=== PATIENT | male | born 1960 | race Caucasian/White ===

== ENCOUNTER 2022-12-08 13:55 | Outpatient (REF) | payer OTHER, SELFPAY ==
--- NOTE | ~2022-12-08 | MR_ITS ---
EXAMINATION: MR BRAIN WITHOUT AND WITH CONTRAST CLINICAL INFORMATION: Seizure disorder. COMPARISON: None available. TECHNIQUE: Multiplanar, multisequence imaging of the brain was performed before and after the intravenous administration of 10 mL of Gadavist. FINDINGS: No diffusion abnormalities are identified to suggest an acute infarct. The ventricles are normal in size. No mass effect or midline shift is seen. No brain parenchymal signal abnormality is noted. No extra-axial fluid collections are seen. The brainstem and cerebellum are normal. There is no abnormal parenchymal or leptomeningeal enhancement. The hippocampi are normal in appearance without volume loss or signal abnormality. The gradient refocused acquisition demonstrates no pathologic magnetic susceptibility artifact to indicate underlying acute or chronic blood products. The craniovertebral junction, marrow signal, and midline structures are normal. The major intracranial flow voids at the level of the burns pa[place] of [place] are preserved. The dural venous sinus flow voids are maintained. The mastoid air cells and paranasal sinuses are well aerated. MR/MR head/brain wo/w con IMPRESSION: Normal MRI of the brain. No acute process. No epileptogenic focus identified or hippocampal pathology.
[2022-12-08] MEDS: gadobutroL 10 ML VIAL IVPUSH (15:25)
== END 2022-12-08 13:56 | disposition home or self-care (01) ==
LOC: HO.MRI 13:55
PROVIDERS: Visit Provider Psychiatry & Neurology Neurology
DX: G40.909 Epilepsy, unspecified, not intractable, without status epilepticus (principal)
CPT/HCPCS: 70553; A9585

== ENCOUNTER 2023-06-28 12:44 | Outpatient (REF) | payer OTHER, SELFPAY ==
--- NOTE | ~2023-06-28 | MR_ITS ---
EXAMINATION: MR ABDOMEN WITHOUT AND WITH CONTRAST CLINICAL INFORMATION: History left renal cell carcinoma COMPARISON: No prior imaging available for comparison. TECHNIQUE: MRI of the abdomen before and after the IV administration of 10 mL of Gadavist was obtained using routine sequences. FINDINGS: LUNG BASES: The visualized lung bases are unremarkable. KIDNEYS AND URETERS: Bosniak 1 bilateral renal cysts and a 3.7 cm left bosniak 2 renal cyst with a few (less than 3) and internal septations, no follow-up imaging recommended. Postsurgical changes of left lower pole partial nephrectomy without findings to suggest residual or recurrent disease. GALLBLADDER: Unremarkable. LIVER AND BILIARY TREE: The liver is normal in signal and morphology. Few scattered benign appearing hepatic cysts. No intra or extrahepatic biliary duct dilatation. PANCREAS: Unremarkable SPLEEN: Unremarkable ADRENAL GLANDS: Unremarkable GASTROINTESTINAL TRACT: Unremarkable. LYMPH NODES: No lymphadenopathy. VASCULAR: Unremarkable ABDOMINAL WALL: Unremarkable. OSSEOUS STRUCTURES: Unremarkable. MR/MR abdomen wo/w con IMPRESSION: Postsurgical changes of left lower pole partial nephrectomy without findings to suggest residual or recurrent disease.
[2023-06-28] MEDS: gadobutroL 10 ML VIAL IVPUSH (14:05)
== END 2023-06-28 12:45 | disposition home or self-care (01) ==
LOC: HO.MRI 12:44
PROVIDERS: PCP Internal Medicine; Visit Provider Physician Assistant
DX: N28.1 Cyst of kidney, acquired (principal); Z90.5 Acquired absence of kidney
CPT/HCPCS: 74183; A9585

== ENCOUNTER 2024-01-14 16:44 | Outpatient (REF) | payer OTHER, SELFPAY ==
[2024-01-14] MEDS: gadobutroL 10 ML VIAL IVPUSH (17:31)
== END 2024-01-14 16:45 | disposition home or self-care (01) ==
LOC: HO.MRI 16:44
PROVIDERS: Visit Provider Nurse Practitioner
DX: N28.89 Other specified disorders of kidney and ureter (principal)
CPT/HCPCS: 74183; A9585

== ENCOUNTER → 2024-01-14 16:52 | Outpatient (BNV) | payer OTHER, SELFPAY | PROVIDERS: Visit Provider Radiology Diagnostic Radiology | DX: N28.89 Other specified disorders of kidney and ureter (principal); R91.8 Other nonspecific abnormal finding of lung field | CPT/HCPCS: 74183 ==

== ENCOUNTER 2024-03-20 11:06 | Outpatient (REF) | payer OTHER, SELFPAY ==
--- NOTE | ~2024-03-20 | CT_ITS ---
CLINICAL HISTORY: LUNG NODULE CT chest with contrast Comparison: None Findings: The heart size is normal. The visualized thyroid and mediastinum are unremarkable. There is a 2 mm nodule in the medial aspect of the right upper lobe, series 3, image 42. In the left lower lobe there is a 1 mm subpleural nodule, series 3, image 96. Adjacent there is also a subpleural 6 mm nodule, image 97. Lungs are otherwise clear. No effusion or pneumothorax. There is a 3.5 cm simple cyst in the left kidney. There is a nonobstructing 2 mm calcification in the left kidney. There is fatty infiltration of the liver. No lytic or blastic bone lesions. No acute fracture deformities. Mild chronic anterior wedging of T12. IMPRESSION: 1. There are a few pulmonary nodules in both lungs, largest is 6 mm in the left lower lobe. Per Fleischner criteria: 6-8 mm nodules need 3-[address] follow-up followed by an optional 18-[address] follow-up regardless of patient risk. 2. Hepatic steatosis. 3. Nonobstructing 2 mm calcification in the left kidney. This document has been electronically signed by: Jose Rafael Rios MD on 03/21/2024 19:29:45
[2024-03-20] MEDS: iohexoL 350 MG/ML 75 ML INFUS..BTL 65 ML IV (12:23)
--- OUTSIDE RECORDS SUMMARY | 2024-03-20 12:39 | XMS_ITS | Encounter Summary ---
Author Organization [facility] Address [address] [place] [address] Care Team Providers Care Pill Coater Name Role Phone Ly Hernández MD Primary Care Provider Reason for Visit * Reason Comments Follow-up Right hip pain Encounter Details Date Type Department Care Team (Late st Contact Info) Description 03/14/2024 8:00 AM EST Office Visit Orthopedic Surgery - [place] [address] [facility] [address] [place] [phone] Chelo Emerson MD [address] [place] [address] Left elbow pain (Primary Dx) Social History Tobacco Use Types Packs/Day Years Used Date Smoking Tobacco: Never Smokeless Tobacco: Never Alcohol Use Standard Drinks/Week Comments Yes 1 (1 standard drink = 0.6 oz pur e alcohol) Sex and Gender Information Value Date Recorded Sex Assigned at Not on file Gender Identity Not on file Sexual Orientation Not on file Job Start Date Occupation Industry Not on file Not on file Not on file documented as of this encounter Last Filed Vital Signs Vital Sign Reading Time Taken Comments Blood Pressure - - Pulse - - Temperature - - Respiratory Rate - - Oxygen Saturation - - Inhaled Oxygen Concentration - - Weight 93.9 kg (207 lb) 03/14/2024 8:05 AM EST Height 177.8 cm (5' 10 ) 03/14/2024 8:05 AM EST Body Mass Index 29.7 03/14/2024 8:05 AM EST documented in this encounter Progress Notes * Chelo Emerson MD - 03/14/2024 8:00 AM EST Michael Riggins CC: Chief Complaint Patient presents with Follow-up Right hip pain HPI: Michael is here to follow-up with his right lateral hip pain and review MRI done recently. I reviewed the MRI images with him which did show an insertional tendinopathy of the right gluteus minimusand medius tendons. There is a small partial-thickness insertional tear of the gluteus medius. There is minimal degenerative changes of the hip joints. There was some slight signal in the superior labrum but unable to fully evaluate for a labral tear on this nonarthrogram study. He reports his hip feels about the same. ROS: Constitutional: no fever Musculoskeletal: see HPI Skin: no rash Neurologic: negative for headache, dizziness The remainder of the systems is noncontributory PMH: Patient Active Problem List Diagnosis Date Noted Palpitations 01/25/2021 Left inguinal hernia 09/23/2020 History of partial nephrectomy 05/25/2020 Renal cyst, left 05/25/2020 Abdominal wall swelling 05/03/2019 Generalized abdominal pain 05/03/2019 Anxiety 05/08/2018 Depression 05/08/2018 Essential hypertension 05/08/2018 Valdovinos's esophagus 03/01/2015 Panic disorder 11/12/2013 Vertigo 09/19/2013 Nasal vestibulitis 09/04/2013 Asymmetrical sensorineural hearing loss 07/30/2013 Ear pain 07/23/2013 Dizziness 07/23/2013 Sleep apnea 2012 Obesity 06/07/2010 Atypical chest pain 06/02/2008 Chronic headache 06/02/2008 IBS (irritable bowel syndrome) 06/02/2008 Diarrhea 05/10/2006 Diverticulitis of colon without hemorrhage 05/08/2006 Allergic rhinitis 12/17/2004 Lumbago 12/17/2004 Hyperlipidemia 07/01/2004 Generalized anxiety disorder 11/27/2000 GERD (gastroesophageal reflux disease) 11/12/1998 PSH: Past Surgical History: Procedure Laterality Date ADENOIDECTOMY PROCEDURE: HISTORICAL ADENOIDECTOMY APPENDECTOMY PROCEDURE: HISTORICAL APPENDECTOMY COLONOSCOPY 02/27/1998 PROCEDURE: HISTORICAL COLONOSCOPY COLONOSCOPY 02/27/2013 PROCEDURE: HISTORICAL COLONOSCOPY; COMMENT: normal COLONOSCOPY W/ BIOPSIES 05/08/2006 PROCEDURE: WY COLONOSCOPY W/BIOPSY SINGLE/MULTIPLE; COMMENT: path: nonspecific inflammation. ESOPHAGOGASTRODUODENOSCOPY 05/08/2006 PROCEDURE: WY EGD TRANSORAL BIOPSY SINGLE/MULTIPLE; COMMENT: duodenal bx wnl. FLEXIBLE SIGMOIDOSCOPY 02/04/2014 PROCEDURE: WY SIGMOIDOSCOPY FLX DX W/COLLJ SPEC BR/WA IF PFRMD; COMMENT: negative to 30 cm (tics). FLEXIBLE SIGMOIDOSCOPY 02/25/2014 PROCEDURE: WY SIGMOIDOSCOPY FLX DX W/COLLJ SPEC BR/WA IF PFRMD; COMMENT: neg/inc CN to 40 cm. NEPHRECTOMY 11/27/2012 PROCEDURE: HISTORICAL NEPHRECTOMY; COMMENT: renal cell ca, partial left nephrectomy OTHER SURGICAL HISTORY 2016 PROCEDURE: HISTORY OTHER; COMMENT: Hernia Repair; MESH repair incisional hernia OTHER SURGICAL HISTORY 2015 PROCEDURE: HISTORY OTHER; COMMENT: Alice fundoplication OTHER SURGICAL HISTORY 08/08/2018 PROCEDURE: WY LAPS COLECTOMY PRTL W/END CLST & CLSR DSTL SGM; COMMENT: Surgical Laparoscopy with partoal (sigmod) colectomy and anastomosis OTHER SURGICAL HISTORY PROCEDURE: WY NEPHROLITHOTOMY COMP CGEN KDN ABNORMALITY TONSILLECTOMY PROCEDURE: HISTORICAL TONSILLECTOMY Medications: Current Outpatient Medications: multivitamin tablet, Take 1 tablet by mouth 1 (one) time each day., Disp: , Rfl: omeprazole (PriLOSEC) [address] capsule, Take 1 capsule (20 mg total) by mouth 2 times daily., Disp:, Rfl: triamcinolone acetonide (KENALOG-40) 40 mg/mL injection, Inject 1 mL (40 mg total) into the joint. (Patient not taking: Reported on 01/23/2024), Disp: , Rfl: Allergies: Allergies Allergen Reactions Fentanyl Nausea And Vomiting and Nausea Only Nitroglycerin Nausea And Vomiting Other Reaction(s): Blood pressure, low LOW BLOOD PRESSURE Morphine Nausea And Vomiting ALL PAIN MEDICATIONS- NAUSEA/GI UPSET AND VOMITING SHx: Social History Tobacco Use Smoking status: Never Smokeless tobacco: Never Substance Use Topics Alcohol use: Yes Alcohol/week: 1.0 - 2.0 standard drink of alcohol FHx: Family History Problem Relation Name Age of Onset Other (Other: kidney disease Goodpasture's disease) Father Colon polyps Father dx age > 60 Multiple myeloma Father Cervical cancer Aunt paternal Colon cancer Uncle paternal, dx > 60 Prostate cancer Uncle Paternal Coronary artery disease Neg Hx Physical Exam: Visit Vitals Ht 1.778 m (70 ) Wt 93.9 kg (207 lb) BMI 29.70 kg/m?? Smoking Status Never BSA 2.12 m?? Gen: No acute distress. Pleasant Eyes: PERRL, EOMI ENT: Mucous membranes moist Resp:Normal respiratory effort Lymphatics: No noted lymphadenopathy MSK: Hip: Right Inspection: no ecchymosis, asymmetry, atrophy. Gait: non-antalgic. Standing: nl. Palpation: Inguinal crease: nl, ASIS: nl, AIIS: nl, Ischial tub/Hamstring attach: nl, Greater troch: TTP , Iliac crest: nl, gluteals/ERs:Nl, piriformis: Nl, IT band : TTP , ROM: IR/ER/Ext/Flex-full Strength: Hip flex @80 deg.: 4/5 , @100 deg: -5/5, Abduct: 4/5, Adduct: nl, Special tests: SHAYNE: nl, FADIR: nl, Trendelenberg: neg but pain with SL balange. DEE: nl, Squat: nl Neurovascular: Sensation to light touch: Intact and symmetric. DTR: Intact and symmetric. Peripheral pulses: Intact and symmetric. Cap. Refill: brisk. Radiographic/Imaging: MRI Rt hip FINDINGS: Mild cartilage thinning and irregularity along the weightbearing surface of the right hip, with small femoral head and acetabular rim osteophytes. No joint effusion. There is linear signal in the anterior superior labrum which could represent a small tear. Insertional tendinopathy of the gluteus minimus with mild fraying at the insertion. Less prominent insertional tendinopathy of the gluteus medius. Small partial-thickness insertional tear of the gluteus meniscus. No large tear. The other periarticular musculature appears normal. Mild degenerative changes of the left hip are also evident, with mild cartilage irregularity along the weightbearing surface and small acetabular rim osteophytes. There are partially visible degenerative changes of the lumbar spine. The prostate gland is mildly enlarged. No pelvic lymphadenopathy. The pelvic bowel loops are normal. IMPRESSION: 1. Insertional tendinopathy of the right gluteus minimus with mild fraying. Less pronounced insertional tendinopathy of the gluteus medius with a small partial- thickness insertional tear. 2. Mild degenerative changes of both hips. 3. Linear signal in the anterior superior right acetabular labrum. This could represent a labral tear. If clinically indicated this could be further evaluated with an MR arthrogram. All images are stored and permanently retrievable Assessment: 1) Right lateral hip pain secondary to gluteus minimus and medius tendinosis with partial-thicknesstearing of the insertion of the gluteus medius tendon. As he has failed multiple conservative therapies including modification of activities, rest, anti-inflammatories and occupational therapy and cortisone injections we discussed platelet rich plasma injection therapy. I did stress that this is not covered by insurance as the FDA considers that experimental. It does incur an [id number] cost of $500 do at the time of visit. I discussed the protocol prior to the procedure which included discontinuing all anti- inflammatory medication 1 week beforethe procedure and not to use them for 2 weeks after the procedure. I discussed use of bracing to limit mobility for 3 to 5 days following the procedure. I also stressed the importance of returning to occupational therapy to begin progressive reloading of this tendon to help facilitate healing. Plan: 1) He will look at his schedule and find a time where it makes sense for him to come in for PRP injection and have the next few days off from work. 2) stressed importance of resuming physical therapy a week after the PRP to help facilitate tendon healing All of the patient's questions were answered. The patient understand and feels comfortable with thecurrent care plan. Thanks for allowing me to be a part of the patient's care team! Please feel free to contact me for any reason. Sincerely, Chelo Emerson MD. ON 03/15/2024 at 1:46 PM EST documented in this encounter Plan of Treatment Upcoming Encounters Date Type Department Care Team (Late st Contact Info) Description 04/12/2024 11:30 AM EST Procedure visit Orthopedic Surgery [facility] [address] [facility] [address] [place] [id number] Chelo Emerson MD [address] [place] [address] 05/08/2024 9:00 AM EDT Office Visit [address] [address] Ly Hernández MD [address] [place] [address] documented as of this encounter Visit Diagnoses Diagnosis Left elbow pain- Primary Pain in joint, upper arm documented in this encounter Care Teams Pill Coater Relationship Specialty Start Date End Date Ly Hernández MD [address] [place] [id number] PCP - General 06/21/1997 documented as of this encounter
--- OUTSIDE RECORDS SUMMARY | 2024-03-20 12:39 | XMS_ITS | Encounter Summary ---
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, unspecified laterality (CMS/HCC) Ly Hernández MD [address] [place] [address] [facility] [address] [address] Referral ID Status Reason Start Date Expiration Date Visits Requested Visits Authorized [id number] Pending Review Specialty Services Required 03/01/2024 03/01/2025 1 1 Reason for Visit * Reason Onset Date Comments Referral 02/29/2024 Referral for [facility] Encounter Details Date Type Department Care Team (Late st Contact Info) Description 02/29/2024 Telephone Adult Medicine [address] [phone] Ly Hernández MD [address] [place] [address] Referral (Referral for ass Urology) Social History Tobacco Use Types Packs/Day Years [...] on file documented as of this encounter Progress Notes * Luna Ballard MA - 03/01/2024 11:12 AM EST New order pended for approval patient already had appointment on 02/12/24 with Urology. Thank you * Luna Ballard MA - 03/01/2024 10:03 AM EST Tried to call patient to inquire what he is looking for. I was unable to reach patient and vm was full * Yamilet Fischer - 02/29/2024 4:29 PM EST Please create an order for the referral Caller: n/a Office: [facility] U[facility] Insurance: [facility] ID: [id number] Provider: Matilda Hare DOS: 02/12/24 Visits: 6 Dx code: N28.1 IMPORTANT Pls copy and paste this into the order. Otherwise, it will not be processed as an ins referral documented in this encounter Plan of Treatment Upcoming Encounters Date Type Department Care Team (Late st Contact Info) Description 04/12/2024 11:30 AM EST Procedure visit Orthopedic Surgery - [place] [address] [facility] [address] [place] [address] Chelo Emerson MD [address] [place] [address] 05/08/2024 9:00 AM EDT Office [place] [facility] [address] [place] [address] Ly Hernández MD [address] [place], [place] Scheduled Referrals Name Type Priority Associated Diagnoses Order Schedule Ambulatory referral to Urology Outpatient Referral Routine 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
--- OUTSIDE RECORDS SUMMARY | 2024-03-20 12:39 | XMS_ITS | Clinical Summary ---
Author Organization [address] Address [address] [place] [phone] Phone Care Team Providers Care Managed Care Coordinator Name Role Phone Ly Hernández MD Primary Care Provider [phone] Allergies Active Allergy Reactions Criticality Noted Date Comments Fentanyl Nausea And Vomiting,Nausea Only High 12/13/2022 Morphine Nausea And Vomiting Medium 06/01/2007 ALL PAIN MEDICATIONS- NAUSEA/GI UPSET AND VOMITING Nitroglycerin Nausea And Vomiting High 06/01/2007 Other Reaction(s): Blood pressure, low LOW BLOOD PRESSURE Medications Medication Sig Dispensed Refills Start Date End Date Status triamcinolone acetonide (KENALOG-40) 40 mg/mL injection Inject 1 mL (40 mg total) into the joint. 08/18/2023 Active omeprazole (PriLOSEC) [address] capsule Take 1 capsule (20 mg total) by mouth 2 times daily. 08/15/2020 Active multivitamin tablet Take 1 tablet by mouth 1 (one) time each day. Active Active Problems Problem Noted Date Diagnosed Date Palpitations 01/25/2021 Overview (01/19/2024): Last Assessment & Plan: The patient has a history of Infrequent episodes of palpitations that have been deemed to be secondary to symptomatic premature beats given the results of his Holter monitor from December 2020. Echocardiogram done in December 2020 did not show any evidence of significant structural heart disease. The patient's symptoms are infrequent and very brief. Therefore, conservative management has been implemented with lifestyle modifications. No need for AV maggi blocking agents at this point, particularly given the patient's resting bradycardia. We will continue close monitoring. The patient will contact our office if he notices any worsening of his episodes of palpitations or any evidence of prolonged episodes of palpitations. Left inguinal hernia 09/23/2020 History of partial nephrectomy 05/25/2020 Renal cyst, left 05/25/2020 Abdominal wall swelling 05/03/2019 Generalized abdominal pain 05/03/2019 Anxiety 05/08/2018 Depression 05/08/2018 Essential hypertension 05/08/2018 Valdovinos's esophagus 03/01/2015 Overview (01/19/2024): EGD and bx 02/17/2015 at [facility]; SSBE, no dysplasia. Consider EGD at [facility] with MAC 01/2017. Panic disorder 11/12/2013 Vertigo 09/19/2013 Nasal vestibulitis 09/04/2013 Asymmetrical sensorineural hearing loss 07/31/19 14 Ear pain 07/23/2013 Dizziness 07/23/2013 Sleep apnea 2012 Overview (01/19/2024): Overall mild Obesity 06/07/2010 Atypical chest pain 06/02/2008 Overview (01/19/2024): Onset 2007. Cardiovascular evaluation negative, very likely related with the patient's anxiety Chronic headache 06/02/2008 Overview (01/19/2024): Onset approx 2008. IBS (irritable bowel syndrome) 06/02/2008 Overview (01/19/2024): Symptomatic onset approximately 2004. Diarrhea predominant. Minimal microscopic colonic mucosal abnormalities on biopsies 2006. No response to Asacol. Duodenal biopsies normal 2006. Diarrhea 05/10/2006 Overview (01/19/2024): Chronic diarrhea/ IBS most likely. Colonic biopsies obtained 05.08.06, negative except for focal, nonspecific inflammatory changes. Diverticulitis of colon without hemorrhage 05/08 Overview (01/19/2024): Incidental finding at colonoscopy 05/08/2006. Allergic rhinitis 12/17/2004 Lumbago 12/17/2004 Overview (01/19/2024): herniated disc 1998 per MRI Hyperlipidemia 07/01/2004 Overview (01/19/2024): elevated triglycerides Generalized anxiety disorder 11/27/2000 GERD (gastroesophageal reflux disease) 9 Overview (01/19/2024): Endo negative 02/01/1999. EGD neg 05/08/2006; duodenal bx: normal. S/p lap fundoplication at [facility] 04/2015 Encounters Date Type Department Care Team Description 03/14/2024 8:00 AM EST Office Visit Orthopedic Surgery [facility] [address] [phone] Chelo Emerson MD Left elbow pain (Primary Dx) 02/29/2024 Telephone Adult Medicine [address] [phone] Ly Hernández MD Referral (Referral for [facility] Urology) 02/22/2024 8:27 AM EST - 02/22/2024 11:59 PM EST Hospital Encounter [facility] MRI [address] [place] [id number] Greater trochanteric pain syndrome of right lower extremity Discharge Disposition: Home or Self Care 02/13/2024 Telephone Adult Medicine [address] [phone] Ly Hernández MD Referral 02/09/2024 8:00 AM EST Consult Orthopedic Surgery [facility] [address] [phone] Chelo Emerson MD Greater trochanteric pain syndrome of right lower extremity 01/26/2024 Telephone Adult Medicine [address] [phone] Ly Hernández MD Referral 01/23/2024 8:45 AM EST Office Visit Adult Medicine [address] [phone] Ly Hernández MD Right hip pain (Primary Dx); Class 1 obesity due to excess calories with serious comorbidity in adult, unspecified BMI; Valdovinos's esophagus with dysplasia from Last 3 Months Immunizations Name Administration Dates Next Due Td Tetanus diptheria (Tdvax) 7yo and older 06/30 Tdap Tetanus diptheria acell ular pertussis (Boostrix; Adacel) 7yo and older 03/16/2010 Surgical History Surgery Date Site/Laterality Comments APPENDECTOMY PROCEDURE: HISTORICAL APPENDECTOMY TONSILLECTOMY PROCEDURE: HISTORICAL TONSILLECTOMY ADENOIDECTOMY PROCEDURE: HISTORICAL ADENOIDECTOMY COLONOSCOPY 02/27/1998 PROCEDURE: HISTORICAL COLONOSCOPY COLONOSCOPY W/ BIOPSIES 05/08/2006 PROCEDURE: OK COLONOSCOPY W/BIOPSY SINGLE/MULTIPLE; COMMENT: path: nonspecific inflammation. ESOPHAGOGASTRODUODENOSCOPY 05/08/2006 PROCEDURE: OK EGD TRANSORAL BIOPSY SINGLE/MULTIPLE; COMMENT: duodenal bx wnl. NEPHRECTOMY 11/27/2012 PROCEDURE: HISTORICAL NEPHRECTOMY; COMMENT: renal cell ca, partial left nephrectomy COLONOSCOPY 02/27/2013 PROCEDURE: HISTORICAL COLONOSCOPY; COMMENT: normal FLEXIBLE SIGMOIDOSCOPY 02/04/2014 PROCEDURE: OK SIGMOIDOSCOPY FLX DX W/COLLJ SPEC BR/WA IF PFRMD; COMMENT: negative to 30 cm (tics). FLEXIBLE SIGMOIDOSCOPY 02/25/2014 PROCEDURE: OK SIGMOIDOSCOPY FLX DX W/COLLJ SPEC BR/WA IF PFRMD; COMMENT: neg/inc CN to 40 cm. OTHER SURGICAL HISTORY 2017 PROCEDURE: HISTORY OTHER; COMMENT: Hernia Repair; MESH repair incisional hernia OTHER SURGICAL HISTORY 2015 PROCEDURE: HISTORY OTHER; COMMENT: Alice fundoplication OTHER SURGICAL HISTORY 08/08/2018 PROCEDURE: OK LAPS COLECTOMY PRTL W/END CLST & CLSR DSTL SGM; COMMENT: Surgical Laparoscopy with partoal (sigmod) colectomy and anastomosis OTHER SURGICAL HISTORY PROCEDURE: OK NEPHROLITHOTOMY COMP CGEN KDN ABNORMALITY Medical History Medical History Date Comments Esophageal reflux 11/12/1998 DX:Esophageal reflux; COMMENT: Endo negative 02/01/1999 Depressive disorder, not els ewhere classified 07/26/2000 DX:Depressive disorder, not elsewhere classified Generalized anxiety disorder 11/27/2000 DX: Generalized anxiety disorder Essential hypertension, benign 03/01/2002 D X:Essential hypertension, benign Obesity, unspecified 11/20/2002 DX:Obesity, unspecified Other and unspecified hyperlipidemia 07/01/2004 DX:Other and unspecified hyperlipidemia Pure hypercholesterolemia 09/03/2004 DX:Pur e hypercholesterolemia Allergic rhinitis, cause unspecified DX:Allergic rhinitis, cause unspecified Lumbago DX:Lumbago; COMM ENT: herniated disc 1998 per MRI Family history of malignant neoplasm of gastrointestinal tract 02/01/1999 DX:Family history of maligna nt neoplasm of gastrointestinal tract; COMMENT: colnoscopy 02/01/1999 negative Uric acid metabolism drugs c ausing adverse effect in therapeutic use DX:Uric acid metabol ism drugs causing adverse effect in therapeutic use; COMMENT: elevated uric acid Family history of colonic polyps 03/31/2006 DX:Family history of colonic polyps; COMMENT: first-degree relative x 1 with diagnosis of colonic polyps at age older than 60. Negative colonoscopy in 1998. Diverticulosis of colon (wit hout mention of hemorrhage) 05/08/2006 DX:Diverticulosis of colon ( without mention of hemorrhage); COMMENT: Incidental finding at colonoscopy 05/08/2006. Diarrhea 05/10/2006 DX:Diarrhea; COM MENT: chronic diarrhea type of problem. Colonic biopsies obtained 05.08.06, negative except for focal, nonspecific inflammatory changes. IBS (irritable bowel syndrome) 06/02/2008 D X:IBS (irritable bowel syndrome); COMMENT: Symptomatic onset approximately 2004. Diarrhea predominant. Minimal microscopic colonic mucosal abnormalities on biopsies 2006. No response to Asacol. Atypical chest pain 06/02/2008 DX:Atypical chest pain; COMMENT: Onset 2007. Cardiovascular evaluation negative. Obesity 06/07/2010 DX:Obesity Vertigo 09/19/2013 DX:Vertigo History of colonoscopy 04/28/2014 DX:Histor y of colonoscopy; COMMENT: 2013. Consider propofol/monitored anesthesia care for future examinations. Valdovinos's esophagus 03/01/2015 DX:Valdovinos's esophagus; COMMENT: EGD and bx 02/17/2015 at [facility]; SSBE, no dysplasia. Consider EGD at [facility] with MAC 01/2017. History of renal carcinoma 03/19/2015 DX:Hi story of renal carcinoma; COMMENT: Left nephrectomy 12/09 Chronic kidney disease, stag e 2 (mild) DX:Chronic kidney disease, s tage 2 (mild) Multiple kidney stones DX:Multip le kidney stones Personal history of malignan t neoplasm 07/16/2013 DX:Personal history of ivis luis neoplasm Family History Medical History Relation Name Comments Cervical cancer Aunt 1 paternal Colon polyps Father dx age > 60 Multiple myeloma Father Other: kidney disease Goodpasture's disease Father Colon cancer Uncle 1 paternal, dx > 60 Prostate cancer Uncle 2 Paternal Coronary artery disease Neg Hx Relation Name Status Comments Aunt 1 Aunt 2 Father Alive alive at 77 yo on 05/15/2013 Mother Alive alive at 73 yo on 05/15/2013 Uncle 1 Uncle 2 Paternal Alive Social History Tobacco Use Types Packs/Day Years Used Date Smoking Tobacco: Never Smokeless Tobacco: Never Tobacco Cessation:Counseling Given: Not Answered Alcohol Use Standard Drinks/Week Comments Yes 1 (1 standard drink = 0.6 oz pur e alcohol) Sex and Gender Information Value Date Recorded Sex Assigned at Not on file Gender Identity Not on file Sexual Orientation Not on file Job Start Date Occupation Industry Not on file Not on file Not on file Obstetrics History Last Filed Vital Signs Vital Sign Reading Time Taken Comments Blood Pressure 130/80 01/23/2024 8:48 AM EST Pulse 56 01/23/2024 8:48 AM EST Temperature 36.1 ??C (96.9 ??F) 01/23/2024 8:48 AM ES T Respiratory Rate 16 01/23/2024 8:48 AM EST Oxygen Saturation - - Inhaled Oxygen Concentration - - Weight 93.9 kg (207 lb) 03/14/2024 8:05 AM EST Height 177.8 cm (5' 10 ) 03/14/2024 8:05 AM EST Body Mass Index 29.7 03/14/2024 8:05 AM EST Plan of Treatment Upcoming Encounters Date Type Department Care Team (Late st Contact Info) Description 04/12/2024 11:30 AM EST Procedure visit Orthopedic Surgery [facility] [address] [facility] [address] [place] [address] Chelo Emerson MD [address] [place] [address] 05/08/2024 9:00 AM EDT Office Visit Adult Medicine [phone] [place] [phone] Ly Hernández MD [address] [place] [address] Health Maintenance Due Date Last Done Comments Pneumococcal Vaccine: Pediatrics (0 to 5 Years) and At-Risk Patients (6 to 64 Years) (1 of 2 - PCV) 1966 Zoster Vaccines (1 of 2) 11/22/1979 COVID-19 Vaccine (3 - Modern a risk series) 12/04/2020 11/06/2020, 10/09/2020 Depression Screening 02/05/2022 HIV Screening 02/05/2022 Hepatitis C Screening 02/05/2022 Social Influencers of Health Screening 02/05/2022 Influenza Vaccine (#1) 2023 Hypertension/CHF/CAD Annual BMP Blood Test 11/06/2024 11/07/2023, 12/21/2022 Cholesterol Screening (Lipid Panel) 11/06/2028 11/07/2023 DTaP,Tdap,and Td Vaccines (4 - Td or Tdap) 07/01/2031 06/30/2021, 03/16/2010, 07/26/2000 Colorectal Cancer Screening: Colonoscopy 03/16/2033 03/16/2023 RSV Immunization Patients 60 + Years Old (1 - 1-dose 75+ series) 11/22/2035 HIB Vaccines Aged Out No longer eligi ble based on patient's age to complete this topic HPV Vaccines Aged Out No longer eligi ble based on patient's age to complete this topic Hepatitis A Vaccines Aged Out No long er eligible based on patient's age to complete this topic Hepatitis B Vaccines Aged Out No long er eligible based on patient's age to complete this topic IPV Vaccines Aged Out No longer eligi ble based on patient's age to complete this topic MMR Vaccines Aged Out No longer eligi ble based on patient's age to complete this topic Meningococcal ACWY Vaccine Aged Out N o longer eligible based on patient's age to complete this topic RSV Immunization Patients Under 20 months Aged Out No longer eligible b ased on patient's age to complete this topic Varicella Vaccines Aged Out No longer eligible based on patient's age to complete this topic Procedures Procedure Name Priority Date/Time Associated Diagnosis Comments MR HIP WO CONTRAST RIGHT Routine 02/22/2024 8:58 AM EST Greater trochanteric pain syndrome of right lower extremity from Last 3 Months Results * MR Hip wo Contrast Right (02/22/2024 8:58 AM EST) Anatomical Region Laterality Modality Lower Extremities, Hip Right Magnetic Resonance 02/22/2024 9:28 AM EST Impressions 02/22/2024 9:57 AM EST 1. ??Insertional tendinopathy of the right gluteus minimus with mild fraying. ??Less pronounced insertional tendinopathy of the gluteus medius with a small partial-thickness insertional tear. 2. ??Mild degenerative changes of both hips. 3. ??Linear signal in the anterior superior right acetabular labrum. ??This could represent a labral tear. ??If clinically indicated this could be further evaluated with an MR arthrogram. -------- FINAL REPORT -------- Dictated By: Damien Benz Dictated Date: 02/22/2024 09:28 ET Assigned Physician: Damien Benz Reviewed and Electronically Signed By: Damien Benz Signed Date: 02/22/2024 09:57 ET Workstation ID: [id number] Transcribed By: Self Edit Transcribed Date: 02/22/2024 09:45 ET Narrative 02/22/2024 9:57 AM EST MRI of the right hip, 02/22/2024 9:28 AM. HISTORY: Hip pain, chronic, articular cartilage eval, xray done Eval for glute tendinosis vs tear. COMPARISON: None. TECHNIQUE: Multiplanar multisequence MRI of the right hip without intravenous contrast administration. ??Large [id number] images of the pelvis were also obtained. FINDINGS: Mild cartilage thinning and irregularity along the weightbearing surface of the right hip, with small femoral head and acetabular rim osteophytes. ??No joint effusion. ??There is linear signal in the anterior superior labrum which could represent a small tear. Insertional tendinopathy of the gluteus minimus with mild fraying at the insertion. ??Less prominent insertional tendinopathy of the gluteus medius. ??Small partial-thickness insertional tear of the gluteus meniscus. ??No large tear. ??The other periarticular musculature appears normal. Mild degenerative changes of the left hip are also evident, with mild cartilage irregularity along the weightbearing surface and small acetabular rim osteophytes. ??There are partially visible degenerative changes of the lumbar spine. ??The prostate gland is mildly enlarged. ??No pelvic lymphadenopathy. ??The pelvic bowel loops are normal. Procedure Note Damien Benz MD - 02/22/2024 MRI of the right hip, 02/22/2024 9:28 AM. HISTORY: Hip pain, chronic, articular cartilage eval, xray done Eval for glute tendinosis vs tear. COMPARISON: None. TECHNIQUE: Multiplanar multisequence MRI of the right hip withoutintravenous contrast administration. Large [id number]-[id number] images of thepelvis were also obtained. FINDINGS: Mild cartilage thinning and irregularity along the weightbearing surfaceof the right hip, with small femoral head and acetabular rim osteophytes.No joint effusion. There is linear signal in the anterior superior labrumwhich could represent a small tear. Insertional tendinopathy of the gluteus minimus with mild fraying at theinsertion. Less prominent insertional tendinopathy of the gluteus medius.Small partial- thickness insertional tear of the gluteus meniscus. Nolarge tear. The other periarticular musculature appears normal. Mild degenerative changes of the left hip are also evident, with mildcartilage irregularity along the weightbearing surface and smallacetabular rim osteophytes. There are partially visible degenerativechanges of the lumbar spine. The prostate gland is mildly enlarged. Nopelvic lymphadenopathy. The pelvic bowel loops are normal. IMPRESSION: 1. Insertional tendinopathy of the right gluteus minimus with mildfraying. Less pronounced insertional tendinopathy of the gluteus mediuswith a small partial-thickness insertional tear. 2. Mild degenerative changes of both hips. 3. Linear signal in the anterior superior right acetabular labrum. Thiscould represent a labral tear. If clinically indicated this could befurther evaluated with an MR arthrogram. -------- FINAL REPORT -------- Dictated By: Damien Benz Dictated Date: 02/22/2024 09:28 ET Assigned Physician: Damien Benz Reviewed and Electronically Signed By: Damien Benz Signed Date: 02/22/2024 09:57 ET Workstation ID: [id number] Transcribed By: Self Edit Transcribed Date: 02/22/2024 09:45 ET Chelo Emerson MD IMG MRI PROCEDURES from Last 3 Months Care Teams Managed Care Coordinator Relationship Specialty Start Date End Date Ly Hernández MD [address] [place] [address] PCP - General 06/21/1997
--- OUTSIDE RECORDS SUMMARY | 2024-03-20 12:39 | XMS_ITS | Encounter Summary ---
Author Organization [facility] Address [address] [place] [address] Care Team Providers Care Log Washer Name Role Phone Ly Hernández MD Primary Care Provider [phone] Reason for Referral * Imaging (Routine) - Pending Review Specialty Diagnoses / Procedures Referred By Contac t Referred To Contact Radiology Diagnoses Greater trochanteric pain syndrome of right lower extremity Procedures MR Hip wo Contrast Right Chelo Emerson MD [address] [place] [address] [phone] Referral ID Status Reason Start Date Expiration Date V isits Requested Visits Authorized [id number] Pending Review 02/09/2024 02/08/2025 1 1 Reason for Visit * Imaging (Routine) - Pending Review Specialty Diagnoses / Procedures Referred By Contac t Referred To Contact Radiology Diagnoses Greater trochanteric pain syndrome of right lower extremity Procedures MR Hip wo Contrast Right Chelo Emerson MD [address] [place] [address] [phone] Referral ID Status Reason Start Date Expiration Date V isits Requested Visits Authorized [id number] Pending Review 02/09/2024 02/08/2025 1 1 Encounter Details Date Type Department Care Team (Latest Contact Info) Description 02/22/2024 8:27 AM EST - 02/22/2024 11:59 PM EST Hospital Encounter [facility] MRI [address] [place] [address] Greater trochanteric pain syndrome of right lower extremity Discharge Disposition: Home or Self Care Social History Tobacco Use Types Packs/Day Years [...] on file documented as of this encounter Medications at Time of Discharge Medication Sig Dispensed Refills Start Date End Date multivitamin tablet Take 1 tablet by mouth 1 (one) time each day. omeprazole (PriLOSEC) [address] capsule Take 1 capsule (20 mg total) by mouth 2 times daily. 08/15/2020 triamcinolone acetonide (KENALOG-40) 40 mg/mL injection Inject 1 mL (40 mg total) into the joint. 08/18/2023 documented as of this encounter Discharge Disposition Disposition Code Departure Means Destination Home or Self Care documented in this encounter Plan of Treatment Upcoming Encounters Date Type Department Care Team (Late st Contact Info) Description 04/12/2024 11:30 AM EST Procedure visit Orthopedic Surgery [facility] [address] [facility] [address] [place] [address] Chelo Emerson MD [address] [place] [address] 05/08/2024 9:00 AM EDT Office Visit Adult Medicine [address] [phone] Ly Hernández MD [address] [place] [id number] documented as of this encounter Procedures Procedure Name Priority Date/Time Associated Diagnosis Comments MR HIP WO CONTRAST RIGHT Routine 02/22/2024 8:58 AM EST Greater trochanteric pain syndrome of right lower extremity documented in this encounter Results * MR Hip wo Contrast Right [...] Signed Date: 02/22/2024 09:57 ET Workstation ID: [id number] Transcribed By: Self Edit Transcribed Date: 02/22/2024 09:45 ET Narrative 02/22/2024 9:57 AM EST MRI of the right hip, 02/22/2024 9:28 AM. HISTORY: Hip pain, chronic, articular cartilage eval, xray done Eval for glute tendinosis vs tear. COMPARISON: None. TECHNIQUE: Multiplanar multisequence MRI of the right hip without intravenous contrast administration. ??Large [id number]-gw-[id number] images of the pelvis were also obtained. [...] the right hip withoutintravenous contrast administration. Large [id number]-[id number] images of thepelvis were also obtained. FINDINGS: [...] Signed Date: 02/22/2024 09:57 ET Workstation ID: [id number] Transcribed By: Self Edit Transcribed Date: 02/22/2024 09:45 ET Chelo Emerson MD IMG MRI PROCEDURES documented in this encounter Visit Diagnoses Diagnosis Greater trochanteric pain syndrome of right lower extremity documented in this encounter Care Teams Log Washer Relationship Specialty Start Date End Date Ly Hernández MD [address] [place] [address] PCP - General 06/21/1997 documented as of this encounter
--- OUTSIDE RECORDS SUMMARY | 2024-03-20 12:40 | XMS_ITS | Continuity of Care Document ---
Author Organization [facility] Address [address] [place] [address] Care Team Providers Care Head Of Housekeeping Name Role Phone Roro Gutierrez MD Primary Care Provider Encounters Date Type Department Care Team Description 11/27/2020 8:20 AM EDT Office Visit [facility] General Surgery [address] [facility] [address] [place] [address] Jeanette Escobar NP Unilateral inguinal hernia without obstruction or gangrene, recurrence not specified (Primary Dx); Aftercare following surgery to body system 2020 Professional Billing [facility] General Surgery [address] [facility] [address] [place] [address] Hunter Mccord MD Non-recurrent unilateral inguinal hernia without obstruction or gangrene 11/17/2020 Minor Procedure/Test NON [facility] [address] [place] [address] Hunter Mccord MD 11/17/2020 Hospital/Inpatient NON [facility] [address] [place] [address] Hunter Mccord MD 11/14/2020 Orders Only NON [facility] [address] [place] [address] Hunter Mccord MD 11/05/2020 2:20 PM EDT Office Visit [facility] Pre-Admission Testing [address] [facility] [address] [place] [address] Anitra Crowe NP Preoperative examination (Primary Dx); Inguinal hernia of left side without obstruction or gangrene; Gastroesophageal reflux disease without esophagitis; Valdovinos's esophagus without dysplasia; Hiatal hernia; Essential hypertension; History of partial nephrectomy; History of nephrolithiasis; Asymmetrical sensorineural hearing loss; Anxiety; Diverticulitis 11/05/2020 3:00 PM EDT Nurse Visit [facility] Pre-Admission Testing [address] [facility] [address] [place] [address] Shakira Figueredo RN Unilateral inguinal hernia without obstruction or gangrene, recurrence not specified (Primary Dx) 10/26/2020 10:30 AM EDT Consult (Initial) [facility] General Surgery [address] [facility] [address] [place] [address] Hunter Mccord MD Non-recurrent unilateral inguinal hernia without obstruction or gangrene (Primary Dx) Allergies Active Allergy Reactions Criticality Noted Date Comments Morphine Nausea/GI Upset Medium 05/02/2018 ALL PAIN MEDICATIONS- NAUSEA/GI UPSET AND VOMITING Nitroglycerin High 05/02/2018 LOW BLOOD PRESSURE Medications Omeprazole (PriLOSEC) [address] capsule Take 20 mg by mouth 2 (two) times a day 08/15/2020 Active FLUTICASONE PROPIONATE, NASAL, (FLONASE) 50 MCG/ACT nasal spray SHAKE LIQUID AND USE 2 SPRAYS IN EACH NOSTRIL DAILY 05/13/2020 Active loratadine (Claritin) 10 MG tablet Take 10 mg by mouth 1 (one) time each day Active Active Problems Problem Noted Date Diagnosed Date History of nephrolithiasis 05/25/2020 History of partial nephrectomy 05/25/2020 Diverticulitis of large intestine without bleedi ng 05/22/2018 Anxiety 05/08/2018 Depression 05/08/2018 Essential hypertension 05/08/2018 Asymmetrical sensorineural hearing loss 07/31/19 14 Social History Smoking Status as of 03/20/2024 Tobacco Use Types Packs/Day Years Used Date Smoking Tobacco: Never Assessed Intimate Partner Violence Answer Date R ecorded Fear of Current or Ex-Partner Not on file Emotionally Abused Not on file 10/20/2022 Physically Abused Not on file 10/20/2022 Sexually Abused Not on file 10/20/2022 Feel Safe at Home Not on file 10/20/2022 Sex and Gender Information Value Date Recorded Sex Assigned at Not on file Legal Sex Male 9:01 AM EDT Gender Identity Not on file Sexual Orientation Not on file Last Filed Vital Signs Vital Sign Reading Time Taken Comments Blood Pressure 130/81 11/05/2020 2:51 PM EDT Pulse 57 11/05/2020 2:51 PM EDT Temperature 36.8 ??C (98.3 ??F) 11/05/2020 2:51 PM ED T Respiratory Rate - - Oxygen Saturation - - Inhaled Oxygen Concentration - - Weight 91.2 kg (201 lb) 11/05/2020 2:51 PM EDT Height 177.8 cm (5' 10 ) 11/05/2020 2:51 PM EDT Body Mass Index 28.84 11/05/2020 2:51 PM EDT Plan of Treatment Not on file Procedures * Due to [place] [employer] law, this organization might not be sharing negative HIV tests. Procedure Name Priority Date/Time Associated Diagnosis Comments UNSPECIFIED MAJOR PROCEDURE 11/17/2020 SARS-COV-2, KATHERINE Routine 11/14/2020 2:30 PM EDT Results * Due to [place] [employer] law, this organization might not be sharing negative HIV tests. * UNSPECIFIED MAJOR PROCEDURE (11/17/2020) Narrative Procedure Note Hunter Mccord MD - 11/17/2020 5:54 PM EDT OPERATIVE REPORT DATE OF OPERATION: 11/17/2020 PREOPERATIVE DIAGNOSIS: Left inguinal hernia. POSTOPERATIVE DIAGNOSIS: Left inguinal hernia. PROCEDURE: Left inguinal hernia repair. ATTENDING SURGEON: Dr. Hunter Mccord. MANAGER COMMERCIAL SALES SURGEON: Dr. Mendez. ANESTHESIA: General. INDICATION: The patient is a 59-year-old male who presents with a symptomatic left inguinal hernia. Risks and benefits of left inguinal hernia repair were discussed withthe patient. Possible complications discussed: Bleeding, infection, bowel injury, bladder injury, testicular injury, vascular injury, nerve entrapment, recurrence of fistula, need for further surgery, DVT, PE, CVA, [place] and possible perioperative were all discussed with the patient. The patient understands these risks and wishes to proceed. PROCEDURE PERFORMED: A 7 cm skin incision was made in the left groin. Dissection was carried down through the subcutaneous tissues using sharp dissection. The external oblique was divided along its fibers extending through the external ring. Spermatic cord was encircled and dissectedto the level of the internal ring. Exploration of the cord revealed an indirect hernia sac. This was dissected to the level of the internal ring, suture ligated and divided. Next, a 2 x 4-inch piece of Prolene mesh was placed into the wound. The mesh was secured to the pubic tubercle using a 2-0 Prolene suture. The inferior border of the mesh was stapled to the shelving edge of the inguinal ligament using the Statak stapling device. Superior border of the mesh was stapled to the internal oblique. Lateral to the cord, the mesh was split, wrapped around the cord and stapled to itself. Opening in the mesh was tightened around the cord using a 2-0 Prolene suture. The external oblique was closed using a 2-0 Vicryl suture. Skin was closed using higinio. The patient tolerated the procedure well. Electronically AuthenticatedBy: Hunter Mccord M.D. 110:49 A Hunter Mccord M.D. es TD: 05:25 P TT: 05:54 P Doc #: [id number] cc: Hunter Mccord M.D. Hunter Mccord MD PROCEDURES Final Result * SARS-COV-2, KATHERINE (11/14/2020 2:30 PM EDT) SARS-COV-2, KATHERINE Not Detected Not Detected [facility] Comment: This nucleic acid amplification test was developed and its performance characteristics determined by [employer]. Nucleic acid amplification tests include RT-PCR and TMA. This test has not been FDA cleared or approved. This test has been authorized by FDA under an Emergency Use Authorization (EUA). This test is only authorized for the duration of time the declaration that circumstances exist justifying the authorization of the emergency use of in vitro diagnostic tests for detection of SARS-CoV-2 virus and/or diagnosis of COVID-19 infection under section 564(b)(1) of the Act, 21 U.S.C. 360bbb-3(b) (1), unless the authorization is terminated or revoked sooner. When diagnostic testing is negative, the possibility of a false negative result should be considered in the context of a patient's recent exposures and the presence of clinical signs and symptoms consistent with COVID-19. An individual without symptoms of COVID-19 and who is not shedding SARS-CoV-2 virus would expect to have a negative (not detected) result in this assay. 11/14/2020 2:30 PM EDT 11/14/2020 2:30 PM EDT Hunter Mccord MD LABORATORY Final Result [facility] [address] [place] [address] Visit Diagnoses Diagnosis Start Date Non-recurrent unilateral inguinal hernia without obstruction or gangrene 10/26/2020 Preoperative examination Preoperative examination, unspecified 11/05/2020 Inguinal hernia of left side without obstruction or gangrene 11/05/2020 Gastroesophageal reflux disease without esophagitis Esophageal reflux 11/05/2020 Valdovinos's esophagus without dysplasia Valdovinos's esophagus 11/05/2020 Hiatal hernia Diaphragmatic hernia without mention of obstruction or gangrene 11/05/2020 Essential hypertension 11/05/2020 History of partial nephrectomy Personal history of surgery to other organs 11/05/2020 History of nephrolithiasis Personal history of urinary calculi 11/05/2020 Asymmetrical sensorineural hearing loss Sensorineural hearing loss, asymmetrical 11/05/2020 Anxiety Anxiety state, unspecified 11/05/2020 Diverticulitis Diverticulitis of colon (without mention of hemorrhage) 11/05/2020 Unilateral inguinal hernia without obstruction or gangrene, recurrence not specified 11/05/2020 Non-recurrent unilateral inguinal hernia without obstruction or gangrene 2020 Unilateral inguinal hernia without obstruction or gangrene, recurrence not specified 11/27/2020 Aftercare following surgery to body system Encounter for other specified aftercare 11/27/2020 Care Teams Head Of Housekeeping Relationship Specialty Start Date End Date Roro Gutierrez MD [address] [address] PCP - General Family Medicine 10/19/20
--- OUTSIDE RECORDS SUMMARY | 2024-03-20 12:42 | XMS_ITS | Encounter Summary ---
Author Organization [facility] Address [address] [place] [address] Care Team Providers Care Field Service Technician Poultry Name Role Phone Ly Hernández Primary Care Provider [phone] Encounter Details Date Type Department Care Team (Late st Contact Info) Description 01/14/2024 Orders Only [facility] - External Imaging [address] [place] [address] Radiology, External [address] [place] [address] Social History Tobacco Use Types Packs/Day Years Used Date Smoking Tobacco: Never Smokeless Tobacco: Never Comments:: Alcohol Use Standard Drinks/Week Comments Yes 0 (1 standard drink = 0.6 oz pur e alcohol) social -3-4 per week Sex and Gender Information Value Date Recorded Sex Assigned at Male 05/25/2018 8:58 AM EDT Legal Sex Male 12:01 AM EDT Gender Identity Male 05/25/2018 8:58 AM EDT Sexual Orientation Straight 07/27/2018 8: 17 AM EDT 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 Not on file Not on file documented as of this encounter Plan of Treatment Upcoming Encounters Date Type Department Care Team (Late st Contact Info) Description 09/16/2024 8:30 AM EDT Follow-Up [facility]rology Clinic [address] [place], [place] [phone] Composing Room Machinist Apprentice: Mariana Ness PA [address] [place] [phone] Pending Results Name Type Priority Associated Diagnoses Date /Time MRI Transfer of Outside Films Abdomen Imaging Whitaker Routine 02/20/2024 10:33 AM EST Scheduled Orders Name Type Priority Associated Diagnoses Orde r Schedule MRI Transfer of Outside Films Abdomen Imaging Whitaker Routine 1 Occurrences starting 02/20/2024 until 03/22/2025 documented as of this encounter Visit Diagnoses Not on filedocumented in this encounter Care Teams Field Service Technician Poultry Relationship Specialty Start Date End Date Ly Hernández [address] [place] [phone] PCP - General Internal Medicine 01/26/24 documented as of this encounter
--- OUTSIDE RECORDS SUMMARY | 2024-03-20 12:42 | XMS_ITS | Encounter Summary ---
Author Organization [facility] Address [address] [place] [address] Care Team Providers Care Floor Layer Apprentice Name Role Phone Ly Hernández Primary Care Provider [phone] Encounter Details Date Type Department Care Team (Late Contact Info) Description 11/08/2022 Orders Only [facility] Interventional Radiology [address] [place] [address] Yamilet Nieto CRISIS COUNSELOR [address] [place], [place] [phone] Renal mass (Primary Dx) Social History Tobacco Use Types Packs/Day Years Used Date Smoking Tobacco: Never Smokeless Tobacco: Never Comments:: Alcohol Use Standard Drinks/Week Comments Yes 0 (1 standard drink = 0.6 oz pur e alcohol) social Sex and Gender Information Value Date Recorded Sex Assigned at Male 05/25/2018 8:58 AM EDT Legal Sex Male 12:01 AM EDT Gender Identity Male 05/25/2018 8:58 AM EDT Sexual Orientation Straight 07/27/2018 8: 17 AM EDT 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 Not on file Not on file documented as of this encounter Plan of Treatment Upcoming Encounters Date Type Department Care Team (Late st Contact Info) Description 09/16/2024 8:30 AM EDT Follow-Up [facility] Urology Clinic [address] [place] [id number] Retail Loss Prevention Investigator: Mariana Ness PA [address] [place] [address] documented as of this encounter Visit Diagnoses Diagnosis Renal mass- Primary Unspecified disorder of kidney and ureter documented in this encounter Additional Health Concerns Infection Onset Date Last Indicated Resolved Time R/O Respiratory Virus Infection 12/21/2022 12/21/2022 2:08 PM EDT R/O Influenza 12/21/2022 12/21/2022 12/21/2022 2:0 8 PM EDT COVID-19 - Suspected infection 12/21/2022 12/21/2022 12/21/2022 2:08 PM EDT documented as of this encounter Care Teams Floor Layer Apprentice Relationship Specialty Start Date End Date HernándezChrisabraham [address] [place] [phone] PCP - General Internal Medicine 01/26/24 documented as of this encounter
--- OUTSIDE RECORDS SUMMARY | 2024-03-20 12:42 | XMS_ITS | Encounter Summary ---
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 Not on file Not on file documented as of this encounter Plan of Treatment Upcoming Encounters Date Type Department Care Team (Late st Contact Info) Description 09/16/2024 8:30 AM EDT Follow-Up [facility] Urology Clinic [address] [place] [phone] Traffic Law Attorney: Mariana Ness PA [address] [place] [address] documented as of this encounter Visit Diagnoses Not on filedocumented in this encounter Additional Health Concerns Infection Onset Date Last Indicated Resolved Time R/O Respiratory Virus Infection 12/21/2022 12/21/2022 2:08 PM EDT R/O Influenza 12/21/2022 12/21/2022 12/21/2022 2:0 8 PM EDT COVID-19 - Suspected infection 12/21/2022 12/21/2022 12/21/2022 2:08 PM EDT documented as of this encounter Care Teams Child Care Attendant Relationship Specialty Start Date End Date Ly Hernández [address] [place] [phone] PCP - General Internal Medicine 01/26/24 documented as of this encounter
--- OUTSIDE RECORDS SUMMARY | 2024-03-20 12:42 | XMS_ITS | Encounter Summary ---
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 Not on file Not on file documented as of this encounter Plan of Treatment Upcoming Encounters Date Type Department Care Team (Late st Contact Info) Description 09/16/2024 8:30 AM EDT Follow-Up [facility] Urology Clinic [address] [place], [place] [address] [address] Yarn Packer: Mariana Ness PA [address] [place] [address] documented as of this encounter Visit Diagnoses Not on filedocumented in this encounter Additional Health Concerns Infection Onset Date Last Indicated Resolved Time R/O Respiratory Virus Infection 12/21/2022 12/21/2022 2:08 PM EDT R/O Influenza 12/21/2022 12/21/2022 12/21/2022 2:0 8 PM EDT COVID-19 - Suspected infection 12/21/2022 12/21/2022 12/21/2022 2:08 PM EDT documented as of this encounter Care Teams Card Table Attendant Relationship Specialty Start Date End Date Ly Hernández [address] [place] [address] PCP - General Internal Medicine 01/26/24 documented as of this encounter
--- OUTSIDE RECORDS SUMMARY | 2024-03-20 12:42 | XMS_ITS | Encounter Summary ---
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 Not on file Not on file documented as of this encounter Plan of Treatment Upcoming Encounters Date Type Department Care Team (Late st Contact Info) Description 09/16/2024 8:30 AM EDT Follow-Up [facility] Urology Clinic [address] [place] [id number] Hay Stacker Operator: Mariana Ness PA [address] [place] [phone] documented as of this encounter Visit Diagnoses Not on filedocumented in this encounter Care Teams Center Line Cutter Operator Relationship Specialty Start Date End Date Ly Hernández [address] [place] [address] PCP - General Internal Medicine 01/26/24 documented as of this encounter
--- OUTSIDE RECORDS SUMMARY | 2024-03-20 12:42 | XMS_ITS | Referral Summary ---
Author Organization [facility] Address [address] [place] [address] Care Team Providers Care High School Admissions Representative Name Role Phone Ly Hernández Primary Care Provider [phone] Encounters Date Type Department Care Team Description 02/20/2024 Orders Only [facility] - External Imaging [address] [place] [address] Radiology, External 02/16/2024 Orders Only [facility] Interventional Radiology [address] [place] [address] Panda Lyman MD 02/13/2024 Telephone [facility] [address] [place] [address] Aerospace Engineer: Sarahy Estrada NP 02/12/2024 myChart Message [facility] [address] [place] [address] Aerospace Engineer: Sarahy Estrada NP PSA & MRI 02/12/2024 8:30 AM EST Follow-Up [facility] [address] [place] [address] Aerospace Engineer: Sarahy Estrada NP Prostate cancer screening (Primary Dx); History of renal cell cancer 01/30/2024 Orders Only [facility] [address] [place] [address] Sarahy Chou NP Other specified disorders of kidney and ureter 01/30/2024 Orders Only [facility] [address] [place] [address] Sarahy Chou NP Other specified disorders of kidney and ureter 01/14/2024 Orders Only [facility] - External Imaging [address] [place] [address] Radiology, External 01/03/2024 Telephone [facility] [address] [place] [address] Aerospace Engineer: Sarahy Estrada NP from Last 3 Months Allergies Active Allergy Reactions Criticality Noted Date Comments Fentanyl Nausea,Vomiting High 12/13/2022 Morphine Vomiting Medium 05/02/2018 Nitroglycerin Blood pressure, low High 05/02/2018 Medications omeprazole (PriLOSEC) 20 mg capsule take 1 capsule by mouth once daily 30 capsule 5 9 Active fluticasone propionate (FLONASE) 50 mcg/actuation nasal spray Administer 2 sprays into each nostril once a day. Active loratadine (CLARITIN) 10 mg tablet Take 10 mg by mouth once a day. Active multivitamin (THERAGRAN) tablet Take 1 tablet by mouth once a day. Active Active Problems Problem Noted Date Diagnosed Date Left inguinal hernia 09/23/2020 Assessment & Plan (09/23/2020 12:09 PM EDT): Michael has developed a symptomatic left inguinal hernia. It is soft and easily reducible and I did spend time showing him how to reduce it himself. He had a long conversation with myself and Dr. Garcia today in clinic. Dr. Flores is not recommending a laparoscopic repair as he has had many intra-abdominal surgeries including a sigmoid colectomy 2 years ago. His abdomen will be fraught with adhesions and Dr. Garcia feels that he would more likely benefit from an open inguinal hernia repair where that they do not have to enter the abdominal cavity. The risk of bowel injury after having the sigmoid colectomy to take down all the adhesions in order to repair the hernia laparoscopically is quite a significant risk. We are recommending that Michael see one of the surgeons that does open inguinal hernia repairs more often, and we have given him the name of Dr. Manning as well as Dr. Mccord. Dr. Mccord works at [facility] and Michael did not want to go over there. But he would like to have a conversation with Dr. Manning. The other possibility is Michael said he may want to go into [place] and [facility] has a hernia center and I have written down their number for him if he wishes to travel to [place]. Michael understood the reasoning for not recommending a laparoscopic inguinal hernia repair and while he was disappointed he did understand that it is in his best interest to try to stay out of the abdomen. He understands that the open repair should be done by a surgeon who is very experienced and does them a lot and agrees with that plan. In the meantime I did warn Michael of the signs symptoms of strangulation and incarceration and he knows to go immediately to the nearest emergency room if any of those happen for him. All of his questions were answered today. Thank you for allowing us to participate in his care. Renal cyst, left 05/25/2020 History of partial nephrectomy 05/25/2020 History of nephrolithiasis 05/25/2020 Generalized abdominal pain 05/03/2019 Abdominal wall swelling 05/03/2019 Diverticulitis of large intestine without bleedi ng 05/22/2018 Essential hypertension 05/08/2018 Depression 05/08/2018 Anxiety 05/08/2018 GERD (gastroesophageal reflux disease) 9 Nasal vestibulitis 09/04/2013 Asymmetrical sensorineural hearing loss 07/31/19 14 Ear pain 07/23/2013 Dizziness 07/23/2013 Social History Tobacco Use Types Packs/Day Years Used Date Smoking Tobacco: Never Smokeless Tobacco: Never Tobacco Cessation:Counseling Given: Not Answered Comments:: Alcohol Use Standard Drinks/Week Comments Yes [...] 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 on file Not on file Last Filed Vital Signs Vital Sign Reading Time Taken Comments Blood Pressure 179/88 02/12/2024 8:06 AM EST Pulse 60 02/12/2024 8:06 AM EST Temperature 36.6 ??C (97.8 ??F) 03/16/2023 1:38 PM ES T Respiratory Rate 20 03/16/2023 1:53 PM EST Oxygen Saturation 100% 03/16/2023 1:53 PM EST Inhaled Oxygen Concentration - - Weight 93 kg (205 lb) 12/13/2022 2:37 PM EDT Height 177.8 cm (5' 10 ) 09/23/2020 10:58 AM EDT Body Mass Index 29.41 09/23/2020 10:58 AM EDT Plan of Treatment Upcoming Encounters Date Type Department Care Team (Late st Contact Info) Description 09/16/2024 8:30 AM EDT Follow-Up [facility] [address] [place] [address] Aerospace Engineer: Mariana Ness PA [address] [place] [address] Procedures * Due to [facility] law, this organization might not be sharing negative HIV tests. Procedure Name Priority Date/Time Associated Diagnosis Comments PSA Routine 02/12/2024 8:59 AM EST Prostate cancer screening COLONOSCOPY 03/16/2023 UPPER GI ENDOSCOPY 03/16/2023 BASIC METABOLIC PANEL STAT 12/21/2022 11:35 AM EDT from Last 3 Months or Most Recently Relevant to Health Maintenance Results * Due to [place] [employer] law, this organization might not be sharing negative HIV tests. * PSA (02/12/2024 8:59 AM EST) PSA 3.95 <=4.00 ng/mL 02/12/2024 11:30 AM EST [facility] [employer] [facility] Comment: The total PSA value from this assay system is standardized against the WHO standard. ??The test result will be slightly lower (< 3 %) when compared to the equimolar-standardized total PSA(Benson Sal). ??Comparison of Serial PSA results should be interpreted with this fact in mind. ??PSA level, regardless of value should not be interpreted as absolute evidence of the presence or absence of disease. This test was performed using Mario chemiluminescent method. ??Values obtained by different assay methods cannot be used interchangeably. Blood Structure of peripheral vein / Unknown Venipuncture / Unknown 02/12/2024 8:59 AM EST 02/12/2024 9:04 AM EST us Sarahy Chou PHOTOGRAPHY ASSISTANT LAB BLOOD ORDERABLES Final Res ult [facility] [address] [place] [id number], * UPPER GI ENDOSCOPY (03/16/2023) Narrative Procedure Note Faustino Moody MD - 03/16/2023 12:39 PM EST [facility] Endoscopy - [address] [place] [address] Patient Name: Michael Riggins Procedure Date: 03/16/2023 12:39 PM Date of : 1960 Admit Type: Outpatient Age: 62 Room: Procedure Room 3 Gender: Male Note Status: Finalized Attending MD: Faustino Moody MD Procedure: Upper GI endoscopy Indications: Surveillance for malignancy due to personal history of Valdovinos's esophagus Providers: Faustino Moody MD Referring MD: Kayli Snow NP (Referring MD) Requesting Provider: Medicines: Propofol per Anesthesia Complications: No immediate complications. Procedure: Pre-Anesthesia Assessment: - The risks and benefits of the procedure and the sedation options and risks were discussed with the patient. All questions were answered and informed consent was obtained. After obtaining informed consent, the endoscope was passed under direct vision. Throughout theprocedure, the patient's blood pressure, pulse, and oxygen saturations were monitored continuously. Theendoscope was introduced through the mouth, and advanced tothe second part of duodenum. The upper GI endoscopy was accomplished without difficulty. The patienttolerated the procedure well. Findings: The Z-line was irregular and was found 41 cm from the incisors. Thiswas biopsied with a cold forceps for histology. Moderately erythematous mucosa (very erythematous with superficial linear erosions) without bleeding was found in the gastric antrum. Biopsies were taken with a cold forceps for histology. The examined duodenum was normal. Impression: - Z-line irregular, 41 cm from the incisors.Biopsied. - Erythematous mucosa in the antrum. Biopsied. - Normal examined duodenum. Recommendation: - Await pathology results. - Perform a colonoscopy today. Faustino Moody MD 03/16/2023 1:23:41 PM This report has been signed electronically. Number of Addenda: 0 Note Initiated On: 03/16/2023 12:39 PM Estimated Blood Loss: Estimated blood loss: none. us Faustino Moody MD PROVATION PROCEDURES Final Resul t * COLONOSCOPY (03/16/2023) Narrative Procedure Note Faustino Moody MD - 03/16/2023 12:37 PM EST [facility] Endoscopy - [address] [place] [address] Patient Name: Michael Riggins Procedure Date: 03/16/2023 12:37 PM Date of : 1960 Admit Type: Outpatient Age: 62 Room: Procedure Room 3 Gender: Male Note Status: Finalized Attending MD: Faustino Moody MD Procedure: Colonoscopy Indications: Screening for colorectal malignant neoplasm Providers: Faustino Moody MD Referring MD: Kayli Snow NP (Referring MD) Requesting Provider: Medicines: Propofol per Anesthesia Complications: No immediate complications. Procedure: Pre-Anesthesia Assessment: - The risks and benefits of the procedure and the sedation options and risks were discussed with the patient. All questions were answered and informed consent was obtained. After I obtained informed consent, the scope was passed under direct vision. Throughout theprocedure, the patient's blood pressure, pulse, and oxygen saturations were monitored continuously. The colonoscope was introduced through the anus and advanced to the cecum, identified by appendiceal orifice and ileocecal valve. The colonoscopy was performed without difficulty. The patient tolerated the procedure well. The quality of the bowel preparation was fair. Findings: The perianal and digital rectal examinations were normal. Non-bleeding internal hemorrhoids were found during retroflexion. A 5 mm polyp was found in the ascending colon. The polyp was sessile. The polyp was removed with a cold snare. Resection and retrieval were complete. The exam was otherwise without abnormality on direct and retroflexion views. Impression: - Preparation of the colon was fair. - Non-bleeding internal hemorrhoids. - One 5 mm polyp in the ascending colon, removedwith a cold snare. Resected and retrieved. - The examination was otherwise normal on directand retroflexion views. Recommendation: - Discharge patient to home. - Resume previous diet. - Continue present medications. - Await pathology results. - Repeat colonoscopy in 5 years for surveillancebased on health at the time. Patient reported eating afull meal of lasagna yesterday and did not take/tolerate his prep. For the next procedure, would need tofollow directions for diet and prep to ensure a betterprep. - Return to referring physician as previously scheduled. Faustino Moody MD 03/16/2023 1:37:29 PM This report has been signed electronically. Number of Addenda: 0 Note Initiated On: 03/16/2023 12:37 PM Estimated Blood Loss: Estimated blood loss: none. us Faustino Moody MD PROVATION PROCEDURES Final Resul t * (ABNORMAL) Basic Metabolic Panel (12/21/2022 11:35 AM EDT) NA 140 135 - 145 mmol/L 12/21/2022 12:15 PM EDT [facility] K 4.6 3.5 - 5.3 mmol/L 12/21/2022 12:15 PM EDT [facility] Cl 106 97 - 110 mmol/L 12/21/2022 12:15 PM EDT [facility] CO2 23(L) 24 - 32 mmol/L 12/21/2022 12:15 PM EDT [facility] BUN 14 7 - 23 mg/dL 12/21/2022 12:15 PM EDT [facility] Creatinine 0.92 0.60 - 1.30 mg/dL 12/21/2022 12:15 PM EDT [facility] Glucose 94 70 - 99 mg/dL 12/21/2022 12:15 PM EDT [facility] Calcium 9.6 8.7 - 10.7 mg/dL 12/21/2022 12:15 PM EDT [facility] Anion Gap 11 5 - 15 12/21/2022 12:15 PM EDT [facility] eGFR >90 >=60 mL/min/1. 73m2 12/21/2022 12:15 PM EDT [facility] Comment:The estimated glomer ular filtration rate (eGFR) is calculated using a new formula developed by the NKF-ASN task force to eliminate race-based correction factors. The new formula uses serum/plasma creatinine, age, and gender to determine eGFR. A value below 60mls/min might indicate kidney disease and will be flagged. For additional information, see Ford et al, Am J Kidney Dis. 2021;79(2):268- 288, A Unifying Approach for GFR estimation: Recommendations of the NKF-ASN Task Force on Reassessing the Inclusion of Race in Diagnosing Kidney Disease . Blood Structure of peripheral vein / Unknown Venipuncture / Unknown 12/21/2022 11:35 AM EDT 12/21/2022 11:44 AM EDT us Ann Ortega MD LAB BLOOD ORDERABLES Final R esult [facility] [address] [place] [address], from Last 3 Months or Most Recently Relevant to Health Maintenance Insurance [employer] Advance Directives Documents on File Type Date Recorded Patient Stage Settings Painter Expl anation Health Care Proxy 07/27/2018 6:50 AM Akosua Riggins * Full Code (Latest Code Status on File) Date Activated Date Inactivated Comments 12/02/2022 3:34 PM 12/03/2022 2:38 AM * Full Code Date Activated Date Inactivated Comments 08/08/2018 4:52 PM 08/12/2018 4:40 PM Healthcare Agents on File Name Relationship Healthcare Agent Relationshi p Communication Akosua Riggins Spouse Health Care Agent Care Teams High School Admissions Representative Relationship Specialty Start Date End Date Ly Hernández [address] [place] [address] [phone] PCP - General Internal Medicine 01/26/24
--- OUTSIDE RECORDS SUMMARY | 2024-03-20 12:42 | XMS_ITS | Encounter Summary ---
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 Not on file Not on file documented as of this encounter Plan of Treatment Upcoming Encounters Date Type Department Care Team (Late st Contact Info) Description 09/16/2024 8:30 AM EDT Follow-Up [facility] [address] [place] [phone] Analytical Chemistry Teacher: Mariana Ness PA [address] [place] [address] documented as of this encounter Visit Diagnoses Not on filedocumented in this encounter Additional Health Concerns Infection Onset Date Last Indicated Resolved Time R/O Respiratory Virus Infection 12/21/2022 12/21/2022 2:08 PM EDT R/O Influenza 12/21/2022 12/21/2022 12/21/2022 2:0 8 PM EDT COVID-19 - Suspected infection 12/21/2022 12/21/2022 12/21/2022 2:08 PM EDT documented as of this encounter Care Teams Dough Molder Hand Relationship Specialty Start Date End Date Ly Hernández [address] [place] [phone] PCP - General Internal Medicine 01/26/24 documented as of this encounter
--- OUTSIDE RECORDS SUMMARY | 2024-03-20 12:42 | XMS_ITS | Encounter Summary ---
Author Organization [facility] Address [address] [place] [address] Care Team Providers Care Mesmerist Name Role Phone Ly Hernández Primary Care Provider [phone] Reason for Referral * MRI/CAT/PET Scan (Routine) - Pending Review Specialty Diagnoses / Procedures Referred By Allison mendes Referred To Contact Procedures MR IMAGES TEMPORARY (OUTSIDE STUDY) Radiology, External [address] [place] [phone] Referral ID Status Reason Start Date Expiration Date V isits Requested Visits Authorized [id number] Pending Review 02/20/2024 08/21/2025 1 1 Encounter Details Date Type Department Care Team (Late st Contact Info) Description 02/20/2024 Orders Only [facility] - External Imaging [address] [place] [phone] Radiology, External [address] [place] [phone] Social History Tobacco Use Types Packs/Day Years [...] 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 on file Not on file documented as of this encounter Plan of Treatment Upcoming Encounters Date Type Department Care Team (Late st Contact Info) Description 09/16/2024 8:30 AM EDT Follow-Up [facility] [address] [place] [phone] Retail Greeting Card Merchandiser: Mariana Ness PA [address] [place] [address] [phone] Scheduled Orders Name Type Priority Associated Diagnoses Orde r Schedule MR IMAGES TEMPORARY (OUTSIDE STUDY) Imaging [facility] Routine 1 Occurrences starting 02/20/2024 until 03/22/2025 documented as of this encounter Visit Diagnoses Not on filedocumented in this encounter Care Teams Mesmerist Relationship Specialty Start Date End Date Ly Hernández [address] [place] [phone] PCP - General Internal Medicine 01/26/24 documented as of this encounter
--- OUTSIDE RECORDS SUMMARY | 2024-03-20 12:42 | XMS_ITS | Encounter Summary ---
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 Not on file Not on file documented as of this encounter Plan of Treatment Upcoming Encounters Date Type Department Care Team (Late st Contact Info) Description 09/16/2024 8:30 AM EDT Follow-Up [facility] [address] [place] [phone] Channel Cementer: Mariana Ness PA [address] [place] [address] documented as of this encounter Visit Diagnoses Not on filedocumented in this encounter Care Teams Barge Master Relationship Specialty Start Date End Date Ly Hernández [address] [place] [phone] PCP - General Internal Medicine 01/26/24 documented as of this encounter
[2024-03-20 15:22] LABS: Creatinine POC 0.9 mg/dL (0.5-1.4); GFR POC > 60
== END 2024-03-20 11:07 | disposition home or self-care (01) ==
LOC: HO.CT 11:06
PROVIDERS: Visit Provider Nurse Practitioner
DX: R91.1 Solitary pulmonary nodule (principal)
CPT/HCPCS: 71260; 82565; Q9967

== ENCOUNTER → 2024-03-20 11:09 | Outpatient (BNV) | payer OTHER, SELFPAY | PROVIDERS: Visit Provider Radiology Diagnostic Radiology | DX: R91.1 Solitary pulmonary nodule (principal); K76.0 Fatty (change of) liver, not elsewhere classified | CPT/HCPCS: 71260 ==